=== PATIENT | female | born 1960 | race Caucasian/White ===

== ENCOUNTER 2020-07-28 14:09 | Inpatient (IN) | payer BC ==
[~2020-07-28] VITALS: Ht 167.6 cm; Wt 68.2 kg
[2020-07-28 15:25] LABS: EOSINOPHILS # (AUTO) 0.1 X10'3 (0-0.9); MEAN CORPUSCULAR HGB CONC 33.8 g/dL (33.0-36.5); RED BLOOD COUNT 3.32 X10'6 (4.20-5.60); RED CELL DISTRIBUTION WIDTH 17.5 % (11.5-14.5)
[2020-07-28 15:26] LABS: BASOPHILS # (AUTO) 0.1 X10'3 (0-0.2); BASOPHILS % (AUTO) 1.5 % (0-1); EOSINOPHILS % (AUTO) 1.3 % (0-6); HEMATOCRIT 37.1 % (35.0-45.0); HEMOGLOBIN 12.5 g/dl (12.0-16.0); LYMPHOCYTES # (AUTO) 1.1 X10'3 (1.1-4.8); LYMPHOCYTES % (AUTO) 14.3 % (21-51); MEAN CORPUSCULAR HEMOGLOBIN 37.8 PG (27.0-31.0); MEAN PLATELET VOLUME 7.8 FL (7.4-10.4); MONOCYTES # (AUTO) 1.2 X10'3 (0-0.9); MONOCYTES % (AUTO) 16.2 % (2-12); NEUTROPHILS # (AUTO) 4.9 X10'3 (1.8-7.7); NEUTROPHILS % (AUTO) 66.7 % (42-75); PLATELET COUNT 80 X10'3 (140-440); WHITE BLOOD COUNT 7.4 X10'3 (4.5-11.0)
[2020-07-28 15:33] LABS: PARTIAL THROMBOPLASTIN TIME 33 SECONDS (22-32)
[2020-07-28 15:39] LABS: ALANINE AMINOTRANSFERASE 24 U/L (12-78); ALBUMIN 2.5 G/DL (3.4-5.0); ALKALINE PHOSPHATASE 185 IU/L (46-116); ANION GAP 6 (8-16); ASPARTATE AMINO TRANSFERASE 100 U/L (10-37); BILIRUBIN,TOTAL 6.9 MG/DL (0.1-1.0); BLOOD UREA NITROGEN 3 MG/DL (7-18); BUN/CREATININE RATIO 3.8 (6.6-38.0); CALCIUM 8.5 MG/DL (8.5-10.1); CHLORIDE 95 MMOL/L (99-107); CREATINE KINASE 30 U/L (26-192); CREATININE 0.78 MG/DL (0.40-0.90); GLUCOSE 108 MG/DL (70-104); LIPASE 88 U/L (73-393); SODIUM 133 MMOL/L (135-145); TOTAL CARBON DIOXIDE 32.5 MMOL/L (24-32); TROPONIN I < 0.04 NG/ML (0.0-0.05); eGFR 76 ML/MIN
[2020-07-28 15:40] LABS: ALBUMIN/GLOBULIN RATIO 0.5 (1.1-1.5); TOTAL PROTEIN 7.9 G/DL (6.4-8.2)
[2020-07-28 15:42] LABS: POTASSIUM 2.8 MMOL/L (3.5-5.1)
--- NOTE | 2020-07-28 15:50 | NUR ---
Pt's abdomen is very large. Pt states that it has been that way for about 6 months. Pt states that she does not have any liver issues that she knows of. Pt's sclera are also very jaundiced.
[2020-07-28 15:51] LABS: ANISOCYTOSIS 1+; NUCLEATED RED BLOOD CELLS 1 /100WBC (0-0); PLATELET ESTIMATE DECREASED; TOTAL CELLS COUNTED 100
[2020-07-28 15:53] LABS: SMUDGE CELLS FEW
[2020-07-28] MEDS ORDERED: thiamine inj. 100 MG, magnesium sulf injection 2 GM, MVI, adult No.4 with vit. K 10 ML ... IV ONE ×4 (15:55)
[2020-07-28] MEDS ORDERED: lactulose 20gm/30ml cup PO ONE (15:55)
[2020-07-28] MEDS ORDERED: potassium Cl 10 mEq/100mL bag IV ONE (15:55)
[2020-07-28] MEDS ORDERED: potassium Cl 20 mEq SR tablet PO ONE (15:55)
[2020-07-28 16:31] LABS: CLARITY,URINE SLIGHTLY CLOUDY (Clear); COLOR,URINE AMBER (Yellow)
[2020-07-28 16:33] LABS: UA COLLECTION TYPE STRAIGHT CATH
[2020-07-28 16:35] LABS: URINE AMPHETAMINE SCREEN NEGATIVE (Neg); URINE BARBITUATE SCREEN NEGATIVE (Neg); URINE BENZODIAZEPINES SCREEN NEGATIVE (Neg); URINE CANNABINOID SCREEN NEGATIVE (Neg); URINE COCAINE SCREEN NEGATIVE (Neg); URINE METHADONE SCREEN NEGATIVE (Neg); URINE OPIATE SCREEN NEGATIVE (Neg); URINE PHENCYCLIDINE SCREEN NEGATIVE (Neg)
[2020-07-28] MEDS ORDERED: thiamine 100mg/ml 2ml inj. IV ONE (16:35)
[2020-07-28] MEDS ORDERED: acetaminophen 325mg tablet PO PRN (16:35)
[2020-07-28] MEDS ORDERED: potassium Cl 20 mEq SR tablet PO PRN (16:35)
[2020-07-28] MEDS ORDERED: magnesium 2GM in 50ml NS 50 ML IV PRN (16:35)
[2020-07-28] MEDS ORDERED: haloperidol lactate 5mg/ml inj IM PRN (16:35)
[2020-07-28] MEDS ORDERED: magnesium 4gm in 100ml NS 100 ML IV PRN (16:35)
[2020-07-28] MEDS ORDERED: bisacodyl 10mg suppository rectal RC PRN (16:35)
[2020-07-28] MEDS ORDERED: magnesium hydroxide 30ml (MOM) UD suspension PO PRN (16:35)
[2020-07-28] MEDS ORDERED: dextrose 50%-water 50ml dispensing syringe IV PRN (16:35)
[2020-07-28] MEDS ORDERED: ondansetron/PF 4mg/2ml inj IV PRN (16:35)
[2020-07-28] MEDS ORDERED: haloperidol 5mg tablet PO PRN (16:35)
[2020-07-28] MEDS ORDERED: mag hydrox/Alum hydrox/simeth 30ml oral suspension PO PRN ×2 (16:35)
[2020-07-28] MEDS ORDERED: metoclopramide 5 mg/ml inj IV PRN (16:35)
[2020-07-28] MEDS ORDERED: LORazepam 1 MG tablet PO PRN (16:35)
[2020-07-28] MEDS ORDERED: potassium CL 10mEq/100ml bag 100 ML IV PRN ×2 (16:35)
[2020-07-28] MEDS: normal saline 1000ml 1,000 ML IV SCH ×2 (16:35→16:51)
[2020-07-28] MEDS ORDERED: magnesium Cl slow-release 64mg tablet PO PRN (16:35)
[2020-07-28 16:39] LABS: BACTERIA,URINE FEW /HPF (Neg); COARSE GRANULAR CAST 0-3 /LPF (NEGATIVE); HYALINE CASTS 0-3 /LPF (NEGATIVE); MUCUS STRANDS NONE SEEN /LPF (Neg); RBC,URINE 20-50 /HPF (0-2); SQUAMOUS EPITHELIAL CELL,UR NONE SEEN /LPF (FEW); TRANSITIONAL EPI CELLS,URINE FEW /HPF; WBC,URINE 0-4 /HPF (0-4)
[2020-07-28] MEDS ORDERED: LORazepam 2 mg/ml vial ONE (16:41)
--- NOTE | 2020-07-28 16:41 | NUR ---
Pt was at about 45 degrees in the bed and all of a sudden started saying, "I can't breathe, I can't breathe". Helped pt sit up on the side of the bed and slow her breathing down, but that did not help. Dr Pandey at bedside and gave a verbal order for Ativan 0.5mg IVP x1.
[2020-07-28] MEDS ORDERED: LORazepam 2 mg/ml vial IV ONE (17:00)
[2020-07-28] MEDS ORDERED: NO HOME MEDS (17:15)
--- NOTE | 2020-07-28 17:30 | NUR ---
Pt is doing much better with her breathing. Pt continues to sit on the side of the bed.
--- NOTE | 2020-07-28 18:51 | NUR ---
Banana bag running at 125 ml/hr. NS maintenance fluid retimed, to be administered after completion of banana bag.
[2020-07-28] MEDS: K and/or MAG REPLACEMENT MC SCH (20:00)
[2020-07-28] MEDS: HYDROmorphone inj. 0.5 MG/0.5 ML DISP.SYRIN IV PRN (21:07)
[2020-07-28] MEDS: LORazepam 2 mg/ml vial IV PRN (21:24)
--- NOTE | 2020-07-28 22:13 | NUR ---
PT GIVEN DILAUDID FOR PAIN AND ATIVAN FOR SHAKING AND TACHYCARDIA
--- NOTE | 2020-07-28 22:35 | NUR ---
PT TRANSFERED TO HOSPITAL BED, CALL LIGHT AND WATER WITHIN REACH.
[2020-07-29] MEDS: normal saline 1000ml 1,000 ML IV SCH ×3 (02:33→18:41)
--- NOTE | 2020-07-29 05:03 | NUR ---
Pt transferred with assistance to bedside commode.
[2020-07-29] MEDS: folic acid 1mg/0.2ml inj IV SCH (07:32)
[2020-07-29] MEDS: thiamine inj. 100 MG, MVI, adult No.4 with vit. K 10 ML in dextrose 5% water 500ml 500 ML IV SCH ×3 (07:37)
[2020-07-29 07:40] VITALS: BP 125/65
[2020-07-29] MEDS ORDERED: folic acid inj. 2 MG, thiamine inj. 100 MG, MVI, adult No.4 with vit. K 10 ML in dextro... IV SCH ×4 (08:00)
[2020-07-29] MEDS: folic acid 1mg tablet PO SCH (08:00)
[2020-07-29] MEDS: thiamine 100mg tablet PO SCH (08:00)
[2020-07-29] MEDS: multivitamins, therapeutics tablet PO SCH (08:00)
[2020-07-29] MEDS: K and/or MAG REPLACEMENT MC SCH ×2 (08:00→20:00)
[2020-07-29 08:04] LABS: BASOPHILS # (AUTO) 0.1 X10'3 (0-0.2); BASOPHILS % (AUTO) 0.8 % (0-1); EOSINOPHILS # (AUTO) 0.1 X10'3 (0-0.9); EOSINOPHILS % (AUTO) 1.3 % (0-6); HEMATOCRIT 33.7 % (35.0-45.0); HEMOGLOBIN 11.5 g/dl (12.0-16.0); LYMPHOCYTES # (AUTO) 0.7 X10'3 (1.1-4.8); LYMPHOCYTES % (AUTO) 11.7 % (21-51); MEAN CORPUSCULAR HEMOGLOBIN 38.1 PG (27.0-31.0); MEAN CORPUSCULAR VOLUME 112.2 FL (78-98); MEAN PLATELET VOLUME 7.9 FL (7.4-10.4); MONOCYTES # (AUTO) 1.1 X10'3 (0-0.9); MONOCYTES % (AUTO) 17.4 % (2-12); NEUTROPHILS # (AUTO) 4.2 X10'3 (1.8-7.7); NEUTROPHILS % (AUTO) 68.8 % (42-75); PLATELET COUNT 61 X10'3 (140-440); RED BLOOD COUNT 3.01 X10'6 (4.20-5.60); RED CELL DISTRIBUTION WIDTH 17.9 % (11.5-14.5); WHITE BLOOD COUNT 6.1 X10'3 (4.5-11.0)
[2020-07-29 08:15] LABS: PARTIAL THROMBOPLASTIN TIME 34 SECONDS (22-32)
[2020-07-29 08:27] LABS: ALANINE AMINOTRANSFERASE 25 U/L (12-78); ALBUMIN 2.3 G/DL (3.4-5.0); ALBUMIN/GLOBULIN RATIO 0.5 (1.1-1.5); ALKALINE PHOSPHATASE 160 IU/L (46-116); ANION GAP 9 (8-16); ASPARTATE AMINO TRANSFERASE 85 U/L (10-37); BILIRUBIN,TOTAL 6.9 MG/DL (0.1-1.0); BLOOD UREA NITROGEN 4 MG/DL (7-18); BUN/CREATININE RATIO 6.3 (6.6-38.0); CALCIUM 7.9 MG/DL (8.5-10.1); CHLORIDE 97 MMOL/L (99-107); CREATININE 0.63 MG/DL (0.40-0.90); GLUCOSE 104 MG/DL (70-104); MAGNESIUM 1.9 MG/DL (1.5-2.4); PHOSPHORUS 2.5 MG/DL (2.3-4.5); SODIUM 136 MMOL/L (135-145); TOTAL PROTEIN 7.1 G/DL (6.4-8.2); eGFR > 90 ML/MIN
--- NOTE | 2020-07-29 08:41 | NUR ---
Page Sent PAGER ID: [phone] MESSAGE: JULIO C [id number]: ELIAN LUCAS 4020A...CRITICAL LAB, POTASSIUM 3.0, WILL GIVE K-DUR 40 MEQ X3 DOSES PER PROTOCOL
[2020-07-29] MEDS: potassium Cl 20 mEq SR tablet PO PRN ×3 (08:52→18:38)
[2020-07-29 09:04] LABS: TOTAL CELLS COUNTED 100
[2020-07-29 09:05] LABS: ANISOCYTOSIS 1+; MONOCYTES % (MANUAL) 11 % (2-12); NEUTROPHILS % (MANUAL) 75 % (42-75); PLATELET ESTIMATE DECREASED
[2020-07-29 11:20] VITALS: BP 136/79
[2020-07-29 11:40] VITALS: BP 136/62
[2020-07-29] MEDS ORDERED: albumin (human) 25% 100 ML IV solution IV ONE (12:10)
[2020-07-29 12:17] LABS: GLUCOSE,BODY FLUID 127 MG/DL; LDH,BODY FLUID 73 U/L; TOTAL PROTEIN,BODY FLUID 2.4 G/DL
[2020-07-29 12:42] LABS: BFAPPEAR HAZY; BFCOLOR YELLOW; BFVOLUME 61 ML
[2020-07-29 12:43] LABS: BF RBC COUNT 5400 /CU MM; BF WBC COUNT 170 /CU MM (0-1000)
[2020-07-29 12:57] LABS: BASOPHILS,BODY FLUID 1 %; LYMPHOCYTES,BODY FLUID 26 %; MONOCYTES,BODY FLUID 56 %; NEUTROPHILS,BODY FLUID 17 %
[2020-07-29 12:58] LABS: BF MESOTHELIAL CELLS MODERATE
[2020-07-29] MEDS: lactulose 20gm/30ml cup PO SCH ×2 (14:42→19:57)
[2020-07-29 18:00] VITALS: BP 143/55
--- NOTE | 2020-07-29 18:11 | NUR ---
Problems reprioritized. Patient report given, questions answered & plan of care reviewed with WILIAM PARRA.
[2020-07-29] MEDS: LORazepam 2 mg/ml vial IV PRN (19:57)
[2020-07-29 22:00] VITALS: BP 107/49
[2020-07-30] MEDS: normal saline 1000ml 1,000 ML IV SCH ×2 (01:00→04:08)
[2020-07-30] MEDS: lactulose 20gm/30ml cup PO SCH ×4 (02:03→20:24)
[2020-07-30] MEDS: HYDROmorphone inj. 0.5 MG/0.5 ML DISP.SYRIN IV PRN ×2 (04:01→20:24)
[2020-07-30 06:00] VITALS: BP 117/50
--- NOTE | 2020-07-30 06:24 | NUR ---
Problems reprioritized. Patient report given, questions answered & plan of care reviewed with WILIAM COURTNEY.
[2020-07-30 07:09] LABS: BASOPHILS % (AUTO) 0.7 % (0-1); EOSINOPHILS # (AUTO) 0.1 X10'3 (0-0.9); EOSINOPHILS % (AUTO) 1.7 % (0-6); HEMATOCRIT 33.9 % (35.0-45.0); HEMOGLOBIN 11.4 g/dl (12.0-16.0); LYMPHOCYTES # (AUTO) 0.7 X10'3 (1.1-4.8); LYMPHOCYTES % (AUTO) 12.7 % (21-51); MEAN CORPUSCULAR HEMOGLOBIN 38.2 PG (27.0-31.0); MEAN CORPUSCULAR HGB CONC 33.5 g/dL (33.0-36.5); MEAN PLATELET VOLUME 8.8 FL (7.4-10.4); MONOCYTES % (AUTO) 17.9 % (2-12); NEUTROPHILS # (AUTO) 3.8 X10'3 (1.8-7.7); PLATELET COUNT 61 X10'3 (140-440); RED BLOOD COUNT 2.98 X10'6 (4.20-5.60); RED CELL DISTRIBUTION WIDTH 18.3 % (11.5-14.5); WHITE BLOOD COUNT 5.6 X10'3 (4.5-11.0)
[2020-07-30 07:18] LABS: PARTIAL THROMBOPLASTIN TIME 33 SECONDS (22-32)
[2020-07-30 07:24] LABS: ALANINE AMINOTRANSFERASE 19 U/L (12-78); ALBUMIN 2.2 G/DL (3.4-5.0); ALBUMIN/GLOBULIN RATIO 0.6 (1.1-1.5); ALKALINE PHOSPHATASE 132 IU/L (46-116); ANION GAP 3 (8-16); ASPARTATE AMINO TRANSFERASE 72 U/L (10-37); BILIRUBIN,TOTAL 6.8 MG/DL (0.1-1.0); BLOOD UREA NITROGEN 3 MG/DL (7-18); BUN/CREATININE RATIO 4.3 (6.6-38.0); CALCIUM 7.5 MG/DL (8.5-10.1); CHLORIDE 105 MMOL/L (99-107); GLUCOSE 111 MG/DL (70-104); MAGNESIUM 1.9 MG/DL (1.5-2.4); PHOSPHORUS 1.5 MG/DL (2.3-4.5); POTASSIUM 3.7 MMOL/L (3.5-5.1); SODIUM 138 MMOL/L (135-145); TOTAL CARBON DIOXIDE 30.4 MMOL/L (24-32); TOTAL PROTEIN 6.2 G/DL (6.4-8.2); eGFR 86 ML/MIN
[2020-07-30 07:52] LABS: PLATELET ESTIMATE DECREASED; TOTAL CELLS COUNTED 100
[2020-07-30 07:53] LABS: ANISOCYTOSIS 2+
[2020-07-30] MEDS: multivitamins, therapeutics tablet PO SCH (08:00)
[2020-07-30] MEDS ORDERED: pantoprazole 40 MG vial IV SCH (08:00)
[2020-07-30] MEDS: thiamine 100mg tablet PO SCH (08:00)
[2020-07-30] MEDS: K and/or MAG REPLACEMENT MC SCH ×2 (08:00→20:00)
[2020-07-30] MEDS: folic acid 1mg tablet PO SCH (08:00)
[2020-07-30 09:31] LABS: HBSAG SCREEN Negative (Negative); HEP A AB, IGM Negative (Negative); HEPATITIS C ANTIBODY <0.1 s/co ratio (0.0-0.9)
[2020-07-30 10:00] VITALS: BP 111/58
[2020-07-30] MEDS: thiamine inj. 100 MG, MVI, adult No.4 with vit. K 10 ML in dextrose 5% water 500ml 500 ML IV SCH ×3 (10:25)
[2020-07-30] MEDS: folic acid 1mg/0.2ml inj IV SCH (10:26)
[2020-07-30] MEDS ORDERED: sincalide inj 1.36 MCG in normal saline 50ml IV soln 50 ML IV PRN (17:00)
[2020-07-30] MEDS ORDERED: phytonadione inj. 3 MG in normal saline 100ml IV soln 100 ML IV ONE (17:00)
[2020-07-30 18:00] VITALS: BP 116/44
--- NOTE | 2020-07-30 18:30 | NUR ---
Patient in room ORTHO 4020. I have received report from WILIAM COURTNEY and had the opportunity to ask questions and assume patient care.
[2020-07-30] MEDS: Neutra Phos packet PO SCH (20:26)
[2020-07-30 22:00] VITALS: BP 108/49
[2020-07-31] MEDS: normal saline 1000ml 1,000 ML IV SCH ×3 (01:00→20:51)
[2020-07-31] MEDS: HYDROmorphone inj. 0.5 MG/0.5 ML DISP.SYRIN IV PRN (01:41)
[2020-07-31] MEDS: lactulose 20gm/30ml cup PO SCH ×3 (01:41→20:40)
--- NOTE | 2020-07-31 02:08 | NUR ---
MESSAGE: [id number] ELIAN LUCAS 59 HERE FOR ALCOHOLIC HEPATITIS HAD A SHORT BURST OF TORSADES (5 SECS). K-3.7 MG-1.9. PT JUST HAD BOWEL MOVEMENT. TIFFANI RAMON. #[id number] FIDEL
[2020-07-31 06:00] VITALS: BP 121/78
--- NOTE | 2020-07-31 06:32 | NUR ---
Problems reprioritized. Patient report given, questions answered & plan of care reviewed with WILIAM BURTON.
[2020-07-31 06:46] LABS: BASOPHILS # (AUTO) 0.1 X10'3 (0-0.2); BASOPHILS % (AUTO) 1.1 % (0-1); EOSINOPHILS # (AUTO) 0.2 X10'3 (0-0.9); EOSINOPHILS % (AUTO) 2.7 % (0-6); HEMATOCRIT 36.1 % (35.0-45.0); LYMPHOCYTES # (AUTO) 0.9 X10'3 (1.1-4.8); LYMPHOCYTES % (AUTO) 14.1 % (21-51); MEAN CORPUSCULAR HEMOGLOBIN 37.9 PG (27.0-31.0); MEAN CORPUSCULAR HGB CONC 33.1 g/dL (33.0-36.5); MEAN CORPUSCULAR VOLUME 114.3 FL (78-98); MEAN PLATELET VOLUME 8.5 FL (7.4-10.4); MONOCYTES # (AUTO) 1.1 X10'3 (0-0.9); NEUTROPHILS # (AUTO) 4.2 X10'3 (1.8-7.7); NEUTROPHILS % (AUTO) 65.1 % (42-75); PARTIAL THROMBOPLASTIN TIME 32 SECONDS (22-32); PLATELET COUNT 75 X10'3 (140-440); RED BLOOD COUNT 3.16 X10'6 (4.20-5.60); RED CELL DISTRIBUTION WIDTH 18.5 % (11.5-14.5); WHITE BLOOD COUNT 6.4 X10'3 (4.5-11.0)
[2020-07-31 06:52] LABS: ALANINE AMINOTRANSFERASE 21 U/L (12-78); ALBUMIN 2.3 G/DL (3.4-5.0); ALKALINE PHOSPHATASE 139 IU/L (46-116); ANION GAP 7 (8-16); ASPARTATE AMINO TRANSFERASE 75 U/L (10-37); BILIRUBIN,TOTAL 6.2 MG/DL (0.1-1.0); BLOOD UREA NITROGEN 4 MG/DL (7-18); BUN/CREATININE RATIO 5.7 (6.6-38.0); CALCIUM 7.6 MG/DL (8.5-10.1); CHLORIDE 105 MMOL/L (99-107); GLUCOSE 119 MG/DL (70-104); MAGNESIUM 1.8 MG/DL (1.5-2.4); POTASSIUM 3.6 MMOL/L (3.5-5.1); SODIUM 141 MMOL/L (135-145); TOTAL CARBON DIOXIDE 28.9 MMOL/L (24-32); eGFR 86 ML/MIN
[2020-07-31 06:53] LABS: ALBUMIN/GLOBULIN RATIO 0.5 (1.1-1.5); TOTAL PROTEIN 6.8 G/DL (6.4-8.2)
[2020-07-31 07:23] LABS: ANISOCYTOSIS 2+; PLATELET ESTIMATE DECREASED
[2020-07-31] MEDS: folic acid 1mg/0.2ml inj IV SCH (08:00)
[2020-07-31] MEDS: K and/or MAG REPLACEMENT MC SCH ×2 (08:00→20:00)
[2020-07-31] MEDS: thiamine inj. 100 MG, MVI, adult No.4 with vit. K 10 ML in dextrose 5% water 500ml 500 ML IV SCH ×3 (08:00)
[2020-07-31] MEDS ORDERED: morphine 2 MG/ML inj. syringe IV PRN (11:00)
--- NOTE | 2020-07-31 11:52 | NUR ---
Student documentation: I have reviewed all interventions, assessments performed and documented by Little Del Rosario. Student Medication Administration: For this medication-pass time frame, all medication were reviewed, dispensed, administered and documented per hospital policy by Little Del Rosario.
[2020-07-31] MEDS: multivitamins, therapeutics tablet PO SCH (15:10)
[2020-07-31] MEDS: thiamine 100mg tablet PO SCH (15:10)
[2020-07-31] MEDS: folic acid 1mg tablet PO SCH (15:10)
[2020-07-31] MEDS: Neutra Phos packet PO SCH ×2 (15:12→20:40)
--- NOTE | 2020-07-31 16:20 | NUR ---
Student documentation: I have reviewed assessment performed and documented by Barbara SIGALA [facility].
[2020-07-31 18:00] VITALS: BP 120/66
--- NOTE | 2020-07-31 18:31 | NUR ---
Problems reprioritized. Patient report given, questions answered & plan of care reviewed with Nathalie SWAIN.
[2020-07-31 22:00] VITALS: BP 135/90
[2020-08-01] MEDS: lactulose 20gm/30ml cup PO SCH ×4 (01:01→19:47)
[2020-08-01] MEDS: HYDROmorphone inj. 0.5 MG/0.5 ML DISP.SYRIN IV PRN ×3 (03:16→20:00)
[2020-08-01 06:00] VITALS: BP 121/58
--- NOTE | 2020-08-01 06:43 | NUR ---
Problems reprioritized. Patient report given, questions answered & plan of care reviewed with WILIAM MEAD.
[2020-08-01 06:56] LABS: BASOPHILS # (AUTO) 0.1 X10'3 (0-0.2); BASOPHILS % (AUTO) 0.8 % (0-1); EOSINOPHILS # (AUTO) 0.1 X10'3 (0-0.9); EOSINOPHILS % (AUTO) 2.2 % (0-6); HEMATOCRIT 34.3 % (35.0-45.0); HEMOGLOBIN 11.6 g/dl (12.0-16.0); LYMPHOCYTES # (AUTO) 0.8 X10'3 (1.1-4.8); LYMPHOCYTES % (AUTO) 13.6 % (21-51); MEAN CORPUSCULAR HEMOGLOBIN 38.8 PG (27.0-31.0); MEAN CORPUSCULAR HGB CONC 33.7 g/dL (33.0-36.5); MEAN CORPUSCULAR VOLUME 115.1 FL (78-98); MEAN PLATELET VOLUME 8.1 FL (7.4-10.4); MONOCYTES # (AUTO) 1.1 X10'3 (0-0.9); MONOCYTES % (AUTO) 18.1 % (2-12); NEUTROPHILS # (AUTO) 3.9 X10'3 (1.8-7.7); NEUTROPHILS % (AUTO) 65.3 % (42-75); PLATELET COUNT 72 X10'3 (140-440); RED BLOOD COUNT 2.98 X10'6 (4.20-5.60); RED CELL DISTRIBUTION WIDTH 19.4 % (11.5-14.5)
[2020-08-01 07:10] LABS: ALANINE AMINOTRANSFERASE 23 U/L (12-78); ALBUMIN 2.1 G/DL (3.4-5.0); ALBUMIN/GLOBULIN RATIO 0.5 (1.1-1.5); ALKALINE PHOSPHATASE 133 IU/L (46-116); ANION GAP 6 (8-16); ASPARTATE AMINO TRANSFERASE 74 U/L (10-37); BILIRUBIN,TOTAL 5.3 MG/DL (0.1-1.0); BLOOD UREA NITROGEN 3 MG/DL (7-18); BUN/CREATININE RATIO 4.5 (6.6-38.0); CALCIUM 7.3 MG/DL (8.5-10.1); CHLORIDE 105 MMOL/L (99-107); CREATININE 0.67 MG/DL (0.40-0.90); GLUCOSE 108 MG/DL (70-104); MAGNESIUM 1.7 MG/DL (1.5-2.4); POTASSIUM 3.6 MMOL/L (3.5-5.1); SODIUM 139 MMOL/L (135-145); TOTAL CARBON DIOXIDE 28.1 MMOL/L (24-32); TOTAL PROTEIN 6.5 G/DL (6.4-8.2); eGFR 90 ML/MIN
[2020-08-01] MEDS: K and/or MAG REPLACEMENT MC SCH ×2 (08:00→19:46)
[2020-08-01] MEDS: pantoprazole 40mg Tablet.DR PO SCH (09:03)
[2020-08-01] MEDS: thiamine 100mg tablet PO SCH (09:04)
[2020-08-01] MEDS: multivitamins, therapeutics tablet PO SCH (09:04)
[2020-08-01] MEDS: sertraline 25mg tablet PO SCH (09:04)
[2020-08-01] MEDS: folic acid 1mg tablet PO SCH (09:04)
[2020-08-01] MEDS: Neutra Phos packet PO SCH ×3 (09:04→19:47)
[2020-08-01 10:00] VITALS: BP 102/47
[2020-08-01] MEDS: normal saline 1000ml 1,000 ML IV SCH ×2 (14:00→19:47)
[2020-08-01 18:00] VITALS: BP 131/76
--- NOTE | 2020-08-01 19:27 | NUR ---
Patient in room ORTHO 4020. I have received report from Ofelia SWAIN and had the opportunity to ask questions and assume patient care.
[2020-08-01 22:00] VITALS: BP 127/60
[2020-08-02] MEDS: HYDROmorphone inj. 0.5 MG/0.5 ML DISP.SYRIN IV PRN (01:08)
[2020-08-02] MEDS: lactulose 20gm/30ml cup PO SCH ×4 (01:08→16:00)
[2020-08-02 06:00] VITALS: BP 121/69
[2020-08-02] MEDS: normal saline 1000ml 1,000 ML IV SCH ×2 (06:35→21:29)
--- NOTE | 2020-08-02 06:49 | NUR ---
Problems reprioritized. Patient report given, questions answered & plan of care reviewed with Ofelia SWAIN.
[2020-08-02 07:12] LABS: BASOPHILS # (AUTO) 0.1 X10'3 (0-0.2); BASOPHILS % (AUTO) 0.9 % (0-1); EOSINOPHILS # (AUTO) 0.2 X10'3 (0-0.9); EOSINOPHILS % (AUTO) 2.4 % (0-6); HEMATOCRIT 34.7 % (35.0-45.0); HEMOGLOBIN 11.8 g/dl (12.0-16.0); LYMPHOCYTES % (AUTO) 14.4 % (21-51); MEAN CORPUSCULAR HEMOGLOBIN 38.9 PG (27.0-31.0); MEAN CORPUSCULAR HGB CONC 33.9 g/dL (33.0-36.5); MEAN CORPUSCULAR VOLUME 114.8 FL (78-98); MEAN PLATELET VOLUME 7.6 FL (7.4-10.4); MONOCYTES # (AUTO) 1.3 X10'3 (0-0.9); MONOCYTES % (AUTO) 19.4 % (2-12); NEUTROPHILS # (AUTO) 4.2 X10'3 (1.8-7.7); NEUTROPHILS % (AUTO) 62.9 % (42-75); PLATELET COUNT 82 X10'3 (140-440); RED BLOOD COUNT 3.03 X10'6 (4.20-5.60); RED CELL DISTRIBUTION WIDTH 18.8 % (11.5-14.5); WHITE BLOOD COUNT 6.7 X10'3 (4.5-11.0)
[2020-08-02 07:42] LABS: ALANINE AMINOTRANSFERASE 23 U/L (12-78); ALBUMIN 2.2 G/DL (3.4-5.0); ALKALINE PHOSPHATASE 138 IU/L (46-116); ANION GAP 8 (8-16); ASPARTATE AMINO TRANSFERASE 74 U/L (10-37); BILIRUBIN,TOTAL 5.1 MG/DL (0.1-1.0); BLOOD UREA NITROGEN 4 MG/DL (7-18); BUN/CREATININE RATIO 6.2 (6.6-38.0); CALCIUM 7.4 MG/DL (8.5-10.1); CHLORIDE 105 MMOL/L (99-107); CREATININE 0.65 MG/DL (0.40-0.90); GLUCOSE 102 MG/DL (70-104); MAGNESIUM 1.7 MG/DL (1.5-2.4); POTASSIUM 3.7 MMOL/L (3.5-5.1); SODIUM 138 MMOL/L (135-145); TOTAL CARBON DIOXIDE 25.5 MMOL/L (24-32); eGFR > 90 ML/MIN
[2020-08-02 07:47] LABS: ALBUMIN/GLOBULIN RATIO 0.5 (1.1-1.5); PHOSPHORUS 2.2 MG/DL (2.3-4.5); TOTAL PROTEIN 6.7 G/DL (6.4-8.2)
[2020-08-02] MEDS: K and/or MAG REPLACEMENT MC SCH ×2 (08:00→20:00)
--- NOTE | 2020-08-02 09:45 | NUR ---
PAGER ID: [phone] MESSAGE: Ofelia [phone] Marcella Hernandez- she is asking for pain meds can we switch to oral instead of dilaudid? maybe oxy IR? Thanks,
[2020-08-02] MEDS: Neutra Phos packet PO SCH ×3 (09:49→21:29)
[2020-08-02] MEDS: pantoprazole 40mg Tablet.DR PO SCH (09:49)
[2020-08-02] MEDS: folic acid 1mg tablet PO SCH (09:49)
[2020-08-02] MEDS: multivitamins, therapeutics tablet PO SCH (09:49)
[2020-08-02] MEDS: thiamine 100mg tablet PO SCH (09:49)
[2020-08-02] MEDS: sertraline 25mg tablet PO SCH (09:49)
[2020-08-02 10:00] VITALS: BP 126/58
[2020-08-02] MEDS ORDERED: morphine 2 MG/ML inj. syringe IV PRN (12:30)
[2020-08-02] MEDS: traMADol 50MG tablet PO PRN ×2 (13:31→21:30)
--- NOTE | 2020-08-02 16:12 | NUR ---
Initial: pt presented to ED with c/o back pain after multiple falls, h/o heavy EtOH daily, found jaundiced. PO intake improving throughout admission was 0-25% and now average 25-49% of low sodium diet. Admitted with hepatitis, EtOH encephalopathy, ascites, acute respiratory failure. Newly developed cirrhosis and s/p paracentesis per MD note. Needs written cirrhosis education handout with verbal review, met pt at bedside to discuss food preferences provide education however was snoring and sleeping heavily when visited. Recommend: 1. continue low sodium diet 2. monitor PO intake and appetite 3. continue thiamine, folic acid, MVI 4. wt per rx Addendum: 08/02/20 at [address] Amended: Links added.
[2020-08-02 18:00] VITALS: BP 135/52
--- NOTE | 2020-08-02 19:07 | NUR ---
Patient in room ORTHO 4020. I have received report from Ofelia SWAIN and had the opportunity to ask questions and assume patient care.
[2020-08-02 22:00] VITALS: BP 124/64
[2020-08-03] MEDS: lactulose 20gm/30ml cup PO SCH ×2 (00:08→08:35)
[2020-08-03 06:00] VITALS: BP 116/55
--- NOTE | 2020-08-03 06:15 | NUR ---
Problems reprioritized. Patient report given, questions answered & plan of care reviewed with Ofelia SWAIN.
[2020-08-03] MEDS: K and/or MAG REPLACEMENT MC SCH (08:00)
[2020-08-03] MEDS: folic acid 1mg tablet PO SCH (08:35)
[2020-08-03] MEDS: pantoprazole 40mg Tablet.DR PO SCH (08:35)
[2020-08-03] MEDS: Neutra Phos packet PO SCH (08:35)
[2020-08-03] MEDS: sertraline 25mg tablet PO SCH (08:36)
[2020-08-03] MEDS: traMADol 50MG tablet PO PRN (08:36)
[2020-08-03] MEDS: thiamine 100mg tablet PO SCH (08:36)
[2020-08-03] MEDS: multivitamins, therapeutics tablet PO SCH (08:36)
[2020-08-03 10:00] VITALS: BP 130/55
[2020-08-03] MEDS ORDERED: MULT-25 PO (12:00)
[2020-08-03] MEDS ORDERED: POTA20TA10 PO (12:00)
[2020-08-03] MEDS ORDERED: LACT10SO32 PO (12:00)
[2020-08-03] MEDS ORDERED: thiamine tablet PO (12:00)
[2020-08-03] MEDS ORDERED: folic acid tablet PO (12:00)
[2020-08-03] MEDS ORDERED: PANT40TA4 PO (12:00)
--- NOTE | 2020-08-03 16:45 | NUR ---
PAGER ID: [phone] MESSAGE: fOelia [id number] re Marcella Zhang that was dc earlier- did you want to continue the Zoloft? she was started on it here for depression
== END 2020-08-03 14:05 | disposition home or self-care (01) | DRG 441 ==
LOC: ER 14:10 → ED HOLD 16:35 → ORTHO 4S 07-29 07:15
PROVIDERS: ADMIT Family Medicine; ATTEND Family Medicine
PROC: 0W9G3ZZ Drainage of Peritoneal Cavity, Percutaneous Approach (ICD-10-PCS; principal; 2020-07-29)
DX: K72.90 Hepatic failure, unspecified without coma (principal); E43 Unspecified severe protein-calorie malnutrition; J96.01 Acute respiratory failure with hypoxia; D68.4 Acquired coagulation factor deficiency; E87.1 Hypo-osmolality and hyponatremia; I31.3 Pericardial effusion (noninflammatory); J90 Pleural effusion, not elsewhere classified; M48.54XA Collapsed vertebra, not elsewhere classified, thoracic region, initial encounter for fracture; E87.6 Hypokalemia; F10.229 Alcohol dependence with intoxication, unspecified; G31.2 Degeneration of nervous system due to alcohol; F32.9 Major depressive disorder, single episode, unspecified; I25.10 Atherosclerotic heart disease of native coronary artery without angina pectoris; K74.60 Unspecified cirrhosis of liver; E80.6 Other disorders of bilirubin metabolism; K80.20 Calculus of gallbladder without cholecystitis without obstruction; K86.89 Other specified diseases of pancreas; R29.6 Repeated falls; S60.212A Contusion of left wrist, initial encounter; Z91.81 History of falling; K70.11 Alcoholic hepatitis with ascites; W18.39XA Other fall on same level, initial encounter; Y93.89 Activity, other specified; Y92.89 Other specified places as the place of occurrence of the external cause; Y99.8 Other external cause status
CPT/HCPCS: 36415; 49083; 70450; 71250; 72125; 72128; 72131; 73110; 74176; 74181; 76700; 76830; 76856; 78227; 80053; 80074; 80305; 80320; 81001; 82140; 82550; 82945; 82948; 83615; 83690; 83735; 84100; 84157; 84484; 85007; 85008; 85025; 85610; 85730; 87070; 87081; 89051; 93005; 97110; 97116; 97162; 97530; 97535; 99285; A9537; C9113; G0378; J1170; J2060; J2270; J2405; J3411; J3430; J3475; J3480; J3490; J7030; J7060; P9047